=== PATIENT | female | born 1980 | race Caucasian/White ===

== ENCOUNTER 2016-05-30 10:38 | Emergency (ER) | payer SELFPAY ==
[~2016-05-30] VITALS: Ht 170.2 cm; Wt 70.0 kg
[~2016-05-30 10:38] MED LIST: FERRF325 PO; IBUP600 PO; OXYC1SOL5 PO; PERI8.6T PO; PRENCAP6 PO
[2016-05-30 10:40] VITALS: BP 108/58; PULSE 101; RESP 15; TEMP 98.2; O2SAT 98
--- NOTE | 2016-05-30 11:35 | PD ---
HPI Chief Complaint: Fall Time Seen by Provider: 11:35 Travel History International Travel<30 days: No Contact w/Intl Traveler<30days: No Traveled to known affect area: No History of Present Illness HPI 35-year-old female presents to the emergency Department with complaint of right foot and ankle pain after falling down approximately 4-6 steps yesterday and injuring her right foot/ankle. She says she twisted her ankle and landed on her foot wrong. She denies hitting her head or loss of consciousness. Denies neck pain or back pain. Denies chest pain, shortness breath, abdominal pain, nausea, vomiting. Has been ambulating on the affected extremity. Denies paresthesias, loss of sensation. Reports decreased range of motion secondary to pain and swelling. Denies focal deficits or weakness. Has not taken any medications to alleviate her symptoms. Has elevated the affected extremity. Has not applied ice or any other treatments to alleviate her symptoms. No known allergies. No other modifying factors or associated signs and symptoms. PFSH Past Medical History Hx Anticoagulant Therapy: No Cardiovascular Problems: No Chemotherapy: No Diabetes: No Diminished Hearing: No Genitourinary: Yes (one kidney smaller does not know which one) Respiratory: No ?: Not : 3 Para: 2 : 1 Past Surgical History Hysterectomy: No Tonsillectomy: Yes Social History Alcohol Use: Yes (prior history of alcohol abuse) Tobacco Use: Yes (prior to one pack per day and during 2-3 cigarettes per) Substance Use: No Allergies-Medications (Allergen,Severity, Reaction): Coded Allergies: No Known Allergies (Verified , 05/30/16) Reported Meds & Prescriptions Reported Meds & Active Scripts Active No Active Prescriptions or Reported Medications Review of Systems Except as stated in HPI: all other systems reviewed are Neg Physical Exam Narrative GENERAL: Well-nourished, well-developed female patient, in no acute distress SKIN: Warm and dry. HEAD: Atraumatic. Normocephalic. No facial or scalp abrasions or lacerations noted. EYES: Pupils equal and round at 3 mm with brisk reaction. No scleral icterus. No injection or drainage. No raccoon eyes. ENT: Mucosa pink and moist. No erythema or exudates. No uvular edema. No uvular , palatal, or tonsillar deviation. Airway patent. Nares without nasal blood, purulent drainage or septal hematoma. No rhinorrhea. EARS: Bilateral pinnae and external canals appear within normal limits. Bilateral tympanic membranes without erythema, dullness, hemotympanum or perforation. No otorrhea. No hernandez signs. NECK: Moving freely.. Trachea midline. Active rotation of the neck greater than 45 left and right. No midline point tenderness on palpation of the cervical spine. No obvious deformities. CHEST: No retractions or use of accessory muscles. CARDIOVASCULAR: Regular rate and rhythm. No murmur appreciated. RESPIRATORY: No accessory muscle use. Clear to auscultation. Breath sounds equal bilaterally. GASTROINTESTINAL: Abdomen soft, non-tender, nondistended. Hepatic and splenic margins not palpable. Bowel sounds are active 4 quadrants. MUSCULOSKELETAL: Right ankle and foot are edematous and without erythema or ecchymosis; with tenderness on palpation; no obvious deformity; toes are pink and warm with less than 3 second cap refill and sensory intact. Right lower extremity is supple and nontender with 2+ pedal pulses and sensory intact. No obvious deformities. No clubbing. No cyanosis. No edema. BACK: No midline Point tenderness on palpation of the lumbar or thoracic spine. No obvious deformities. Patient sitting up in bed at 90. NEUROLOGICAL: Awake and alert. Oriented 3. No obvious cranial nerve deficits. Motor grossly within normal limits. Normal speech. Moves all extremities. 5/5 strength to all extremities. Sensory intact. PSYCHIATRIC: Appropriate mood and affect; insight and judgment normal. Data Data Last Documented VS Vital Signs Date Time Temp Pulse Resp B/P Pulse Ox O2 Delivery O2 Flow Rate FiO2 05/30/16 10:40 98.2 101 15 108/58 98 Orders Ankle, Complete ([id number]) (05/30/16 11:33) Foot, Complete ([id number]) (05/30/16 11:33) Ice/Cold Pack (05/30/16 11:33) Acetamin-Hydrocod 325-5 Mg ([place] 5-325 (05/30/16 12:00) Crutches (05/30/16 12:53) Splint Or Brace Apply/Monitor (05/30/16 12:53) MDM Medical Decision Making Medical Screen Exam Complete: Yes Emergency Medical Condition: Yes Medical Record Reviewed: Yes Differential Diagnosis Fall, ankle sprain, ankle fracture, foot fracture, foot contusion, foot sprain Narrative Course 35-year-old female with right ankle and foot injury after a fall from approximately 4-6 stairs yesterday. She landed injuring her ankle and foot. She denies hitting her head or loss of consciousness. Denies nausea, vomiting. On physical exam the patient is without raccoon eyes, hernnadez signs, rhinorrhea, or hemotympanum. I do not suspect open or depressed skull fracture, and the patient has no signs of basilar skull fracture. [place] CT Head Injury Rule suggests a head CT is not necessary for this patient and clears the patient for head injury without imaging. Denies neck pain or back pain. [place] C-Spine Rule suggests the C-Spine can be cleared clinically of fracture, and imaging is not required. There is no midline point tenderness on palpation of the cervical spine. The patient is able to actively rotate the neck 45 left and right. The patient is sitting up in bed at 90. The patient is ambulatory. Pain medication ordered by Dr. Raines. Right ankle and foot x-ray ordered. 1242: Right ankle x-ray concludes Soft tissue swelling with no acute fracture. Right foot x-ray concludes Bipartite versus fractured sesamoid involving the medial aspect of the first metatarsal head. Does patient have point tenderness in this region?; In addition, there may be a small avulsion fracture off the lateral aspect of the cuboid. Call placed to podiatry. 1254: Patient wants to leave AMA. I provided her with crutches and an Abhay bandage for support. AMA: The risks of leaving against medical advice without further evaluation treatment were discussed with the patient. These risks include cardiac dysfunction, cardiac dysrhythmia, possible heart attack, possible stroke or . The patient indicated understanding of these risks and appeared to have the capacity to make this decision. 1300: Patient left prior to receiving crutches and Abhay bandages being applied. Diagnosis Primary Impression: Left against medical advice Scripts No Active Prescriptions or Reported Meds Disposition: 07 AGAINST MEDICAL ADVICE Catrachita Melendez May 30, 2016 11:35
[2016-05-30] MEDS ORDERED: ACETAMINOPHEN/HYDROcodone 325 MG/5 MG TAB PO ONE (12:00)
--- NOTE | 2016-05-30 12:38 | RADRPT ---
EXAM DATE/TIME: 05/30/2016 11:54 [facility] COMPARISON: No previous studies available for comparison. INDICATIONS : Fall down stairs two days ago. Right foot and ankle pain. MEDICAL HISTORY : None. SURGICAL HISTORY : None. ENCOUNTER: Initial ACUITY: 2 days PAIN SCORE: 7/10 LOCATION: Right foot, dorsal FINDINGS: Three view examination of the right foot demonstrates a fracture versus bipartite medial sesamoid of the first metatarsal head. In addition, there may be a small avulsion injury off the lateral aspect o f the cuboid. CONCLUSION: 1. Bipartite versus fractured sesamoid involving the medial aspect of the first metatarsal head. Does patient have point tenderness in this region? 2. In addition, there may be a small avulsion fracture off the lateral aspect of the cuboid. John Benson MD on May 30, 2016 at 12:30 Board Certified Radiologist. This report was verified electronically.
--- NOTE | 2016-05-30 12:39 | RADRPT ---
EXAM DATE/TIME: 05/30/2016 11:59 [facility] COMPARISON: No previous studies available for comparison. INDICATIONS : Fall down stairs two days ago. Right foot and ankle pain and swelling. MEDICAL HISTORY : None. SURGICAL HISTORY : None. ENCOUNTER: Initial ACUITY: 2 days PAIN SCORE: 8/10 LOCATION: Right ankle FINDINGS: Three view exam was performed of the right ankle. Soft tissue swelling is most prominent about the la teral malleolus. Osseous structures are otherwise intact with no acute fracture. Ankle mortise is sym metric. CONCLUSION: Soft tissue swelling with no acute fracture. John Benson MD on May 30, 2016 at 12:37 Board Certified Radiologist. This report was verified electronically.
== END 2016-05-30 13:00 | disposition left against medical advice (07) ==
LOC: NETRI 10:38
DX: M25.571 Pain in right ankle and joints of right foot (principal); W10.9XXA Fall (on) (from) unspecified stairs and steps, initial encounter
CPT/HCPCS: 73610; 73630; 99283; E0113